=== PATIENT | female | born 1990 | race Caucasian/White ===

== ENCOUNTER 2016-11-12 15:17 | Emergency (ER) | payer BC, OTHER ==
[2016-11-12 15:35] VITALS: BP 140/73; PULSE 78; RESP 14; TEMP 98.2; O2SAT 98
[2016-11-12] MEDS ORDERED: TDAP ADULT 0.5 ML VIAL (BOOSTRIX) IM ONE (15:56)
--- NOTE | 2016-11-12 16:39 | EDPHY ---
H & P Stated Complaint: lac on R elbow Time Seen by Provider: 11/12/16 15:45 HPI/ROS: Chief complaint: Right elbow laceration History of present illness: 26-year-old female presents to the emergency department for a right elbow laceration. Patient cut her elbow at work earlier today. She cut it on a metal shelf. She did go to work clinic were was cleaned and dressed. She was sent here for further care. She reports minimal bleeding. No pain. She is moving the right arm without difficulty. No report of paresthesias or abnormal coolness in the arm. She believes she is not up-to- date on her tetanus. - Personal History LMP (Females 10-55): 22-28 Days Ago Current Tetanus/Diphtheria Vaccine: Yes Current Tetanus Diphtheria and Acellular Pertussis (TDAP): Yes - Medical/Surgical History Hx Asthma: No Hx Chronic Respiratory Disease: No Hx Diabetes: No Hx Cardiac Disease: No Hx Renal Disease: No Hx Cirrhosis: No Hx Alcoholism: No Hx HIV/AIDS: No Hx Splenectomy or Spleen Trauma: No Other PMH: asthma - Social History Smoking Status: Current some day smoker - Physical Exam Exam: General: Alert, nontoxic Skin: Abrasion to the posterior aspect of the right elbow, no repairable lesions Musculoskeletal: She is flexing and extending her right elbow without difficulty. She is pronating and supinating the forearm without difficulty. She is moving the wrist and the digits of the right hand without difficulty. Vascular: Radial pulses 2+. Neurologic: Sensation intact throughout the right arm. Constitutional: Initial Vital Signs Temperature (C) 36.8 C 11/12/16 15:33 Heart Rate 78 11/12/16 15:33 Respiratory Rate 14 11/12/16 15:33 Blood Pressure 140/73 H 11/12/16 15:33 O2 Sat (%) 98 11/12/16 15:33 O2 Delivery Mode Room Air Allergies/Adverse Reactions: No Known Allergies Allergy (Unverified 11/12/16 15:35) Medical Decision Making ED Course/Re-evaluation: Patient seen under the supervision of my primary supervising physician Dr. Stephy Hicks. Patient presents to the emergency department for a right elbow wound. She has a superficial abrasion. No repairable lesions. The arm is neurovascularly intact. She has good musculoskeletal control. The wound is re- cleaned and dressed. Her tetanus is updated. Patient is discharged. She is asked to follow up with worker's compensation for recheck. Return precautions are given. Patient voiced understanding and agreement with plan. - Data Points Medications Given: Discontinued Medications Diphtheria/Tetanus/Acell Pertussis (Boostrix) 0.5 ml IM .ONCE ONE Stop: 11/12/16 15:57 Last Admin: 11/12/16 16:05 Dose: 0.5 ml Departure - Departure Disposition: Home, Routine, Self-Care Clinical Impression: Elbow abrasion Qualifiers: Encounter type: initial encounter Laterality: right Qualifier Code: (S50.311A) Abrasion of right elbow, initial encounter Condition: Good Instructions: Abrasion (ED), Acute Wound Care (ED) Additional Instructions: Follow-up with worker's compensation for recheck If symptoms worsen or new symptoms develop return to the emergency department for recheck Referrals: NONE *PRIMARY CARE P,. [Primary Care Provider] - As per Instructions
== END 2016-11-12 16:42 | disposition home or self-care (01) ==
DX: S50.311A Abrasion of right elbow, initial encounter (principal); F17.200 Nicotine dependence, unspecified, uncomplicated; J45.909 Unspecified asthma, uncomplicated; Z23 Encounter for immunization; W45.8XXA Other foreign body or object entering through skin, initial encounter; Y92.69 Other specified industrial and construction area as the place of occurrence of the external cause; Y99.0 Civilian activity done for income or pay; Y93.89 Activity, other specified